=== PATIENT | female | born 1990 | race African-American/Black ===

== ENCOUNTER 2024-02-10 11:37 | Inpatient (IN) | payer OTHER ==
[2024-02-10] MEDS: ELECTROLYTE-148 SOLN 1,000 ML IV SCH (12:00)
[2024-02-10 12:56] LABS: BASO % 0.6 % (0-2.0); EOS % 0.8 % (0-4.5); HEMOGLOBIN 9.2 GM/dL (10.7-15.3); LYMPH % 18.7 % (8-40); MCH 24.9 pg (25.7-33.7); MCHC 32.7 g/dl (32.0-36.0); MEAN CELL VOLUME 76.2 fl (80-96); MEAN PLT VOLUME 6.6 fl (7.5-11.1); MONO % 8.6 % (3.8-10.2); NEUT % 71.3 % (42.8-82.8); PLATELET COUNT 310 10^3/uL (134-434); RBC 3.68 M/mm3 (3.60-5.2); WHITE BLOOD COUNT 7.9 K/mm3 (4.0-10.0)
[2024-02-10 12:58] VITALS: BMI 36.9
[2024-02-10] MEDS: CITRIC ACID/SODIUM CITRATE 30 ML UNIT-DOSE CUP PO ONE (13:00)
[2024-02-10 13:07] LABS: INR 1.16 (0.83-1.09); PROTHROMBIN TIME (PATIENT) 13.3 SEC (9.7-13.0)
[2024-02-10 13:09] LABS: ACTIVATED PTT 28.1 SECONDS (25.2-36.5)
[2024-02-10 13:25] LABS: POTASSIUM 3.8 mmol/L (3.5-5.1)
[2024-02-10 13:27] LABS: CALCIUM 8.4 mg/dL (8.5-10.1)
[2024-02-10 13:28] LABS: BLOOD UREA NITROGEN 9.4 mg/dL (7-18)
[2024-02-10 13:30] LABS: CREATININE 0.3 mg/dL (0.55-1.3)
[2024-02-10 13:40] LABS: SYPHILIS W/ RPR CONF NON-REACTIVE (NONREACTIVE)
[2024-02-10] MEDS ORDERED: FENTANYL CITRATE/PF 50 MCG/ML VIAL ONE (14:00)
[2024-02-10] MEDS ORDERED: morphine SULFATE/PF 1 MG/2 ML (2cc Syringe - QUVA) ONE (14:00)
[2024-02-10 14:10] LABS: HIV INTERPRETATION NEGATIVE (NEGATIVE)
[2024-02-10] MEDS ORDERED: ePHEDrine SULFATE 50 MG/1 ML AMPULE ONE (15:02)
[2024-02-10] MEDS ORDERED: OXYTOCIN 10 UNITS/ML VIAL ONE (15:10)
[2024-02-10] MEDS ORDERED: METOCLOPRAMIDE HCL INJECTION 10 MG/2 ML VIAL ONE (15:21)
[2024-02-10] MEDS ORDERED: OXYTOCIN 20 UNITS in 0.9% NS 20 UNIT/1,000 ML INFUS.BAG IV ONE (16:50)
[2024-02-10] MEDS ORDERED: ACETAMINOPHEN 325 MG TABLET (FP) PO PRN (16:56)
[2024-02-10] MEDS ORDERED: ONDANSETRON 4 MG/2 ML VIAL IVPUSH PRN (16:56)
[2024-02-10] MEDS: ACETAMINOPHEN 1000 MG/100 ML BAG IVPB ONE (17:00)
[2024-02-10] MEDS ORDERED: ACETAMINOPHEN INJECTION 100 ML IVPB ONE (17:01)
[2024-02-10] MEDS: OXYTOCIN 20 UNITS in 0.9% NS 20 UNIT/1,000 ML INFUS.BAG IV SCH ×2 (18:34→23:00)
[2024-02-10] MEDS ORDERED: METHYLERGONOVINE MALEATE 0.2 MG/1 ML AMP IM PRN (20:09)
[2024-02-10 20:10] VITALS: RESP 18
[2024-02-10] MEDS: IBUPROFEN 600 MG TABLET (FP) PO PRN (20:31)
[2024-02-11 08:03] LABS: BASO % 0.2 % (0-2.0); EOS % 0.2 % (0-4.5); HEMATOCRIT 23.7 % (32.4-45.2); HEMOGLOBIN 7.9 GM/dL (10.7-15.3); LYMPH % 12.7 % (8-40); MCH 25.2 pg (25.7-33.7); MCHC 33.1 g/dl (32.0-36.0); MEAN CELL VOLUME 76.1 fl (80-96); MONO % 11.7 % (3.8-10.2); NEUT % 75.2 % (42.8-82.8); PLATELET COUNT 278 10^3/uL (134-434); RBC 3.12 M/mm3 (3.60-5.2); RDW 14.8 % (11.6-15.6); WHITE BLOOD COUNT 13.3 K/mm3 (4.0-10.0)
[2024-02-11] MEDS ORDERED: oxyCODONE HCL 5 MG TABLET PO PRN (08:09)
[2024-02-11] MEDS: ENOXAPARIN NA (PORCINE) 40 MG/0.4 ML DISP.SYRIN SQ SCH (09:36)
[2024-02-11] MEDS: PRENATAL VITAMINS W/ FOLIC ACID TABLET (FP) PO SCH (09:36)
[2024-02-11] MEDS: IBUPROFEN 600 MG TABLET (FP) PO PRN (09:36)
[2024-02-11] MEDS: IRON SUCROSE INJECTION 200 MG in SODIUM CHLORIDE 100 ML IVPB ONE (12:36)
[2024-02-11] MEDS: ACETAMINOPHEN 325 MG TABLET (FP) PO PRN (12:41)
[2024-02-11] MEDS: diphenhydrAMINE HCL 25 MG CAPSULE (FP) PO PRN (13:24)
[2024-02-11] MEDS ORDERED: BISACODYL 10 MG SUPP.RECT RC PRN (20:09)
[2024-02-11] MEDS: SENNOSIDES/DOCUSATE COMBO (SENNA PLUS) TABLET (UD) PO PRN (20:26)
[2024-02-11] MEDS: SIMETHICONE 80 MG TAB.CHEW (FP) PO PRN (20:33)
[2024-02-12] MEDS: oxyCODONE HCL 5 MG TABLET PO PRN (12:28)
[2024-02-13 06:18] LABS: BASO % 0.4 % (0-2.0); EOS % 2.6 % (0-4.5); HEMATOCRIT 24.5 % (32.4-45.2); HEMOGLOBIN 8.1 GM/dL (10.7-15.3); LYMPH % 26.8 % (8-40); MCH 25.3 pg (25.7-33.7); MCHC 33.1 g/dl (32.0-36.0); MEAN CELL VOLUME 76.5 fl (80-96); MEAN PLT VOLUME 6.5 fl (7.5-11.1); MONO % 11.4 % (3.8-10.2); NEUT % 58.8 % (42.8-82.8); PLATELET COUNT 308 10^3/uL (134-434); RDW 14.7 % (11.6-15.6); WHITE BLOOD COUNT 7.1 K/mm3 (4.0-10.0)
[2024-02-13 09:43] VITALS: BP 120/89; PULSE 82; TEMP 98.3
== END 2024-02-13 13:50 | disposition home or self-care (01) | DRG 788 ==
LOC: JLDR 11:37 → J3W 19:43
PROVIDERS: ADMIT Obstetrics & Gynecology; ATTEND Obstetrics & Gynecology
PROC: 10D00Z1 Extraction of Products of Conception, Low, Open Approach (ICD-10-PCS; principal; 2024-02-10)
DX: O34.211 Maternal care for low transverse scar from previous cesarean delivery (principal); O36.63X0 Maternal care for excessive fetal growth, third trimester, not applicable or unspecified; O24.419 Gestational diabetes mellitus in pregnancy, unspecified control; O90.81 Anemia of the puerperium; Z3A.38 38 weeks gestation of pregnancy; Z37.0 Single live birth; Z90.79 Acquired absence of other genital organ(s)
CPT/HCPCS: 36415; 80048; 85025; 85610; 85730; 86780; 86803; 86850; 86900; 86901; 87389; 88307-TC; 94010; J0131; J1756